=== PATIENT | female | born 1985 | race Asian ===

== ENCOUNTER 2017-07-06 03:15 | Inpatient (IN) | payer SELFPAY ==
[~2017-07-06] VITALS: Ht 162.6 cm; Wt 70.8 kg
[2017-07-06] MEDS ORDERED: LACTATED RINGERS 1,000 ML IV SCH (15:14)
[2017-07-06] MEDS ORDERED: METOCLOPRAMIDE 10 MG/2 ML INJ VIAL IVP ONE (15:15)
[2017-07-06] MEDS ORDERED: CITRIC ACID/SODIUM CITRATE 30 ML UDC PO ONE (15:15)
[2017-07-06] MEDS ORDERED: PREN-380 PO (15:25)
[2017-07-06] MEDS ORDERED: CITRIC ACID/SODIUM CITRATE 30 ML UDC PO SCH (15:36)
[2017-07-06] MEDS ORDERED: METOCLOPRAMIDE 10 MG/2 ML INJ VIAL IVP SCH (15:37)
[2017-07-06 17:16] LABS: ALBUMIN 2.7 g/dL (3.4-5.0); ANION GAP 14.5 (8-16); CARBON DIOXIDE 22.1 mmol/L (21-32); CREATININE 0.6 mg/dL (0.6-1.3); POTASSIUM 3.6 mmol/L (3.5-5.1); TOTAL BILIRUBIN 0.2 mg/dL (0.0-1.0)
[2017-07-06 17:49] LABS: BASOPHILS % (AUTO) 0.1 % (0.0-2.0); EOSINOPHILS # (AUTO) 0.1 K/uL (0-0.4); EOSINOPHILS % (AUTO) 0.5 % (0.0-4.0); HEMOGLOBIN 11.7 g/dL (12.0-16.0); LYMPHOCYTES # (AUTO) 1.9 K/uL (2.5-16.5); LYMPHOCYTES % (AUTO) 15.7 % (20.5-51.1); MEAN CORPUSCULAR HEMOGLOBIN 29 pg (27-31); MEAN CORPUSCULAR HGB CONC 32 g/dL (33-37); MEAN CORPUSCULAR VOLUME 89.4 fL (80-94); MONOCYTES # (AUTO) 0.9 K/uL (0.8-1.0); MONOCYTES % (AUTO) 7.9 % (1.7-9.3); NEUTROPHILS % (AUTO) 75.8 % (42.2-75.2); PLATELET COUNT (AUTO) 200 K/uL (140-450); RED BLOOD CELL COUNT(AUTO) 4.02 MIL/uL (4.20-5.40); RED CELL DISTRIBUTION WIDTH 13.3 % (11.6-13.7); WHITE BLOOD COUNT (AUTO) 11.9 K/uL (4.8-10.8)
[2017-07-06 18:01] LABS: APPEARANCE,URINE HAZY (CLEAR); BILIRUBIN,URINE NEGATIVE (NEGATIVE); BLOOD, URINE NEGATIVE (NEGATIVE); COLOR,URINE ORANGE (YELLOW); LEUKOCYTE ESTERASE ,URINE TRACE (NEGATIVE); NITRITE, URINE NEGATIVE (NEGATIVE); UGLUCOSE NEGATIVE (NEGATIVE)
[2017-07-06 18:14] LABS: RBC,URINE 3-10 (FEW) /HPF (0-5)
[2017-07-06] MEDS ORDERED: TRIAMCINOLONE 40 MG/ML 5ML VIAL ONE (20:26)
[2017-07-06] MEDS ORDERED: OXYTOCIN 10 UNITS/ML VIAL ONE (20:26)
[2017-07-06] MEDS ORDERED: ceFAZolin 1,000 MG VIAL ONE ×2 (20:57→21:20)
[2017-07-06] MEDS ORDERED: MIDAZOLAM 2 MG/2 ML VIAL ONE (20:58)
[2017-07-06] MEDS ORDERED: MORPHINE PRES FREE 10 MG/10 ML AMP IV ONE (20:59)
[2017-07-06] MEDS ORDERED: BUPIVACAINE-MPF 0.5% 30 ML VIAL INJ ONE (21:06)
[2017-07-06] MEDS ORDERED: ONDANSETRON 4 MG/2 ML VIAL ONE (21:15)
[2017-07-06] MEDS ORDERED: BUPIVACAINE-MPF 0.5% 10 ML VIAL INJ ONE (21:20)
[2017-07-06] MEDS ORDERED: VASOPRESSIN 20 UNITS/ML VIAL ONE (21:20)
[2017-07-06] MEDS ORDERED: METHYLERGONOVINE 0.2 MG/ML AMP ONE ×2 (21:45→22:52)
[2017-07-06] MEDS ORDERED: diphenhydrAMINE 50 MG/ML VIAL IVP PRN ×2 (22:05)
[2017-07-06] MEDS ORDERED: NALBUPHINE 10 MG/ML AMP IVP PRN (22:05)
[2017-07-06] MEDS ORDERED: NALOXONE 0.4 MG/ML VIAL IVP PRN ×3 (22:05)
[2017-07-06] MEDS ORDERED: MEPERIDINE 25 MG/ML SYR IVP PRN (22:05)
[2017-07-06] MEDS ORDERED: HYDROmorphone 1 MG/ML AMP IVP PRN (22:05)
[2017-07-06] MEDS ORDERED: ONDANSETRON 4 MG/2 ML VIAL IVP PRN ×2 (22:05)
[2017-07-06] MEDS ORDERED: diphenhydrAMINE 50 MG/ML VIAL ONE (22:07)
[2017-07-06] MEDS: OXYTOCIN 20 UNITS/LR PREMIX 1,000 ML IV ONE ×2 (22:29→22:58)
[2017-07-06] MEDS: METHYLERGONOVINE 0.2 MG/ML AMP IM ONE (22:45)
[2017-07-06] MEDS ORDERED: OXYTOCIN 10 UNITS in LACTATED RINGERS 1,000 ML IV SCH (23:42)
[2017-07-06] MEDS ORDERED: oxyCODONE/APAP 5/325 MG 1 TAB TAB PO PRN (23:45)
[2017-07-06] MEDS ORDERED: MEASLES, MUMPS, AND RUBELLA 1 VIAL SQVAC PRN (23:45)
[2017-07-06] MEDS ORDERED: METHYLERGONOVINE 0.2 MG/ML AMP IM PRN (23:45)
[2017-07-07] MEDS: KETOROLAC 30 MG/ML VIAL IM/IVP SCH ×4 (00:33→18:18)
[2017-07-07] MEDS ORDERED: OXYTOCIN 20 UNITS/LR PREMIX 1,000 ML IV ONE (04:14)
[2017-07-07] MEDS: OXYTOCIN 20 UNITS in LACTATED RINGERS 1,000 ML IV SCH ×2 (04:40→12:08)
[2017-07-07] MEDS ORDERED: BISACODYL 10 MG SUPP RC SCH (09:00)
[2017-07-07 10:56] LABS: BASOPHILS % (AUTO) 0.1 % (0.0-2.0); HEMATOCRIT 30.5 % (36-48); LYMPHOCYTES # (AUTO) 1.6 K/uL (2.5-16.5); LYMPHOCYTES % (AUTO) 7.6 % (20.5-51.1); MEAN CORPUSCULAR HEMOGLOBIN 29 pg (27-31); MEAN CORPUSCULAR HGB CONC 33 g/dL (33-37); MEAN CORPUSCULAR VOLUME 89.3 fL (80-94); MONOCYTES # (AUTO) 1.5 K/uL (0.8-1.0); MONOCYTES % (AUTO) 6.9 % (1.7-9.3); NEUTROPHILS # (AUTO) 17.9 K/uL (1.8-7.7); NEUTROPHILS % (AUTO) 85.4 % (42.2-75.2); PLATELET COUNT (AUTO) 188 K/uL (140-450); RED BLOOD CELL COUNT(AUTO) 3.42 MIL/uL (4.20-5.40); RED CELL DISTRIBUTION WIDTH 13.2 % (11.6-13.7)
[2017-07-07 11:53] LABS: RAPID PLASMA REAGIN NON-REACTIVE (Non Reactiv)
[2017-07-07] MEDS: DOCUSATE SOD/SENNA 50/8.6 MG 1 TAB PO SCH (21:00)
--- NOTE | 2017-07-08 09:10 | NUR ---
PATIENT HAS BEEN SCREENED AND CATEGORIZED LOW NUTRITION RISK. PATIENT WILL BE SEEN WITHIN 7 DAYS OF ADMISSION. 07/13/[address]
[2017-07-08] MEDS: SIMETHICONE 80 MG TAB.CHEW PO PRN ×2 (13:09→17:31)
[2017-07-08] MEDS: DOCUSATE SOD/SENNA 50/8.6 MG 1 TAB PO SCH (21:31)
[2017-07-09] MEDS: HYDROcodone/APAP 5/325 MG 1 TAB TAB PO PRN ×2 (08:11→19:07)
[2017-07-09] MEDS: DOCUSATE SOD/SENNA 50/8.6 MG 1 TAB PO SCH (20:42)
[2017-07-09] MEDS: SIMETHICONE 80 MG TAB.CHEW PO PRN (20:42)
[2017-07-10] MEDS: HYDROcodone/APAP 5/325 MG 1 TAB TAB PO PRN ×2 (01:11→12:00)
== END 2017-07-10 13:40 | disposition home or self-care (01) | DRG 765 ==
LOC: UNDOADMIN 03:15 → MLD 03:15 → MFCC 23:30
PROVIDERS: ADMIT Obstetrics & Gynecology; ATTEND Obstetrics & Gynecology
PROC: 10D00Z1 Extraction of Products of Conception, Low, Open Approach (ICD-10-PCS; principal; 2017-07-06 21:00)
DX: O60.14X0 Preterm labor third trimester with preterm delivery third trimester, not applicable or unspecified (principal); O45.93 Premature separation of placenta, unspecified, third trimester; O44.43 Low lying placenta NOS or without hemorrhage, third trimester; O69.81X0 Labor and delivery complicated by cord around neck, without compression, not applicable or unspecified; Z3A.30 30 weeks gestation of pregnancy; Z37.0 Single live birth; Z28.21 Immunization not carried out because of patient refusal
CPT/HCPCS: 36415; 80053; 81001; 85025; 86592; 86762; 86886; 86900; 86901; 87086; 87340; J0690; J1200; J1885; J2210; J2250; J2270; J2405; J2590; J3301; J3490; J7120